=== PATIENT | female | born 1990 | race Caucasian/White ===

== ENCOUNTER 2017-01-29 05:24 | Day surgery (SDC) | payer MEDICAID ==
[2017-01-28 10:39] LABS: BASOPHILS 0.2 % (0-2); EOSINOPHILS 0.8 % (0-7); HEMATOCRIT 40.4 % (36.0-48.0); HEMOGLOBIN 12.7 g/dL (12-16); IMMATURE GRANULOCYTES 0.2 % (0-5); LYMPHOCYTES 37.8 % (15-50); MCH 25.8 pg (26.0-34.0); MCHC 31.4 g/dL (31.0-37.0); MCV 81.9 fL (80.0-100.0); MEAN PLATELET VOLUME 9.5 fL (7.4-10.4); MONOCYTES 7.5 % (2-11); NEUTROPHILS 53.5 % (40-80); PLATELET COUNT 162 10x3/uL (130-400); RBC 4.93 10x6/uL (4.00-5.40); RDW 14.7 % (11.5-14.5); WBC 6.4 10x3/uL (4.8-10.8)
[2017-01-28 10:53] LABS: CALC OSMOLALITY 274 mosm/kg (275-300); CALCIUM 8.6 mg/dL (8.5-10.1); CARBON DIOXIDE 28.3 mmol/L (21.0-32.0); CHLORIDE - SERUM 104 mmol/L (98-107); CREATININE - SERUM 0.9 mg/dL (0.6-1.3); GLUCOSE 82 mg/dL (74-106); SODIUM 139 mmol/L (136-145); UREA NITROGEN 8 mg/dL (7-18); eGFR NON AFRICAN AMERICAN 80 mL/min (90-120)
[~2017-01-29 05:24] MED LIST: ACETAMINOPHEN325 MG PO; ALEVE220 MG PO; PRENAVITE1 TAB PO
--- NOTE | 2017-01-29 07:04 | HP ---
PATIENT: JEAN PAUL PERRY J MEDICAL RECORD: [id number] ACCOUNT: [id number] LOCATION:[facility] : 89 ADMISSION DATE: 01/29/17 HISTORY AND PHYSICAL EXAMINATION HISTORY OF PRESENT ILLNESS: This patient is a 26-year-old 3, para 3, white female, who desires sterilization and IUD removal. MEDICAL HISTORY: DRUG ALLERGIES: None known. CURRENT MEDICATIONS: None. PREVIOUS SURGERIES: Appendectomy. SOCIAL HISTORY: Nonsmoker. PHYSICAL EXAMINATION: GENERAL: Well-developed, well-nourished female, in no distress. HEENT: Grossly unremarkable. LUNGS: Clear. HEART: Regular rate and rhythm. ABDOMEN: Soft and nontender. PELVIC: Current and deferred for anesthesia. IUD string is visible. EXTREMITIES: No cyanosis, clubbing, or edema. NEUROLOGIC: Grossly intact. IMPRESSION: Undesired fertility, desire for removal of IUD. PLAN: Laparoscopic tubal sterilization procedure with removal of the intrauterine contraceptive device. I have discussed with the patient potential risks of surgery including anesthesia, infection, bleeding, injury to other organs and answered all questions. TRANSINT:[id number] Voice Confirmation ID: [id number] DOCUMENT ID: [id number] BHARGAV RIVERA MD at 0704 CC: [id number] DICTATION DATE: 01/28/17 1321 GROUNDSKEEPER SUPERVISOR: 01/28/[address] [facility] [address] [place] [address]
[2017-01-29 07:11] VITALS: BP 122/74; BMI 36.9
[2017-01-29 07:18] LABS: HCG URINE NEGATIVE (NEGATIVE)
--- NOTE | 2017-01-29 16:42 | NUR ---
1510--PT COMPLAINS OF PAIN, DEMEROL 50MG GIVEN X1 TAB PO. WILL CONTINUE TO MONITOR. YENNY ZAPATA 1540--PT VOIDS WITHOUT DIFFICULTY, IV DC'D. YENNY ZAPATA 7891--DISCHARGE INSTRUCTIONS GIVEN, PT VERBALIZES UNDERSTANDING. PT OFF UNIT VIA WC. YENNY ZAPATA
== END 2017-01-29 15:55 | disposition home or self-care (01) ==
LOC: D.OPS 05:24 → D.PAN 09:45 → D.OPS 09:45
PROVIDERS: Obstetrics & Gynecology
DX: Z30.2 Encounter for sterilization (principal); Z01.812 Encounter for preprocedural laboratory examination